=== PATIENT | female | born 1945 | race Caucasian/White ===

== ENCOUNTER → 2018-03-31 | Outpatient (CLI) | payer MEDICARE ==
[~2018-03-31] MED LIST: ASP81TEC PO; MECL-124 PO; NAPR-243 PO; OMEP40CA36 PO; ONDAN4ODT PO; SCOP1PAT TD
--- NOTE | 2018-03-31 08:21 | Diagnostic Imaging Report ---
PROCEDURE: CT head without contrast. TECHNIQUE: Multiple contiguous axial images were obtained through the brain without the use of intravenous contrast. INDICATION: Memory loss and dizziness COMPARISON: 09/14/2012 FINDINGS: No acute intracranial hemorrhage, mass effect or edema is seen. Balderarma-white junction is preserved. There is mild diffuse atrophy. The ventricles appear normal. Few scattered areas of hypodensity in the periventricular white matter likely related to chronic small vessel ischemic change. The paranasal sinuses and mastoids are clear as visualized. IMPRESSION: No evidence of an acute intracranial abnormality. Dictated by: Dictated on workstation # [id number]
== END ==
LOC: RAD 07:48
PROVIDERS: ATTEND Family Medicine
DX: R41.3 Other amnesia (principal); R42 Dizziness and giddiness; W19.XXXS Unspecified fall, sequela
CPT/HCPCS: 70450

== ENCOUNTER 2019-09-25 17:48 | Emergency (ER) | payer MEDICARE ==
[~2019-09-25] VITALS: Ht 157.5 cm; Wt 55.8 kg
[2019-09-25] MEDS ORDERED: LOSA25TA41 PO (18:18)
[2019-09-25] MEDS ORDERED: MEMA10TA57 PO (18:18)
[2019-09-25] MEDS ORDERED: VITA1CAP19 PO (18:18)
[2019-09-25] MEDS ORDERED: OMG1KC PO (18:18)
[2019-09-25] MEDS ORDERED: PRAV10TA PO (18:18)
[2019-09-25] MEDS ORDERED: LORA1TAB PO ×2 (18:18)
[2019-09-25 18:28] VITALS: BP_SYST 137; BP_SYST 165; BP_SYST 177; BP_DIAS 77; BP_DIAS 79; BP_DIAS 91
[2019-09-25 18:52] LABS: BASOPHILS % (AUTO) 1 % (0-10); EOSINOPHILS % (AUTO) 1 % (0-10); HEMATOCRIT 41 % (35-52); HEMOGLOBIN 14.2 G/DL (11.5-16.0); LYMPHOCYTES # (AUTO) 2.9 X 10^3 (1.0-4.0); LYMPHOCYTES % (AUTO) 42 % (12-44); MEAN CORPUSCULAR HEMOGLOBIN 32 PG (25-34); MEAN CORPUSCULAR HGB CONC 35 G/DL (32-36); MEAN CORPUSCULAR VOLUME 92 FL (80-99); MEAN PLATELET VOLUME 9.8 FL (7.4-10.4); MONOCYTES # (AUTO) 0.5 X 10^3 (0.0-1.0); MONOCYTES % (AUTO) 7 % (0-12); NEUTROPHILS # (AUTO) 3.4 X 10^3 (1.8-7.8); NEUTROPHILS % (AUTO) 49 % (42-75); PLATELET COUNT 246 10^3/uL (130-400); WHITE BLOOD COUNT 6.9 10^3/uL (4.3-11.0)
[2019-09-25] MEDS ORDERED: LACTATED RINGERS 1,000 ML IV ONE (19:06)
[2019-09-25 19:14] LABS: ALANINE AMINOTRANSFERASE 19 U/L (0-55); ALBUMIN 4.6 GM/DL (3.2-4.5); ALKALINE PHOSPHATASE 78 U/L (40-136); BILIRUBIN,TOTAL 0.5 MG/DL (0.1-1.0); BUN/CREATININE RATIO 12; CALCIUM 10.2 MG/DL (8.5-10.1); CARBON DIOXIDE 20 MMOL/L (21-32); CHLORIDE 105 MMOL/L (98-107); CREATININE SERUM 1.05 MG/DL (0.60-1.30); GFR ESTIMATED 51; GLUCOSE 105 MG/DL (70-105); POTASSIUM 3.5 MMOL/L (3.6-5.0); SODIUM 141 MMOL/L (135-145); TOTAL PROTEIN 7.7 GM/DL (6.4-8.2)
--- NOTE | 2019-09-25 19:15 | Diagnostic Imaging Report ---
INDICATION: Increased confusion COMPARISON: 07/15/2013 FINDINGS: Single frontal view of the chest demonstrates normal heart size and pulmonary vascularity. The lungs are hyperinflated, but are otherwise clear. No large pleural effusion or pneumothorax is seen. The visualized osseous structures show no acute abnormalities. IMPRESSION: 1. No acute cardiopulmonary process. 2. Hyperinflation of the lungs. Correlation with underlying obstructive pulmonary disease is recommended. Dictated by: Dictated on workstation # [id number]
--- NOTE | 2019-09-25 19:16 | Diagnostic Imaging Report ---
INDICATION: History of dementia. Increased confusion. TECHNIQUE: Routine non contrast-enhanced axial images were obtained from the skull base to the vertex. Auto Exposure Controls were utilized during the CT exam to meet ALARA standards for radiation dose reduction COMPARISON: 03/31/2018 FINDINGS: The ventricles and cortical sulci are diffusely prominent, compatible with age-related volume loss. There are confluent areas of abnormal, low attenuation in the periventricular white matter. This is consistent with chronic small vessel ischemic changes. There is no midline shift or mass-effect. No acute intra-axial hemorrhage is seen. There are no abnormal areas of increased or decreased density to suggest acute hemorrhage or edema. No extra-axial masses or collections are present. The bony calvarium is intact. The visualized paranasal sinuses are unremarkable. The mastoid air cells are clear. IMPRESSION: 1. No acute intracranial abnormality. No CT evidence of mass, acute infarct or intracranial hemorrhage. 2. Chronic small vessel ischemic changes in the deep white matter. Dictated by: Dictated on workstation # [id number]
--- NOTE | 2019-09-25 19:19 | ED General ---
General Chief Complaint: Neurological Problems Stated Complaint: SHAKING, BARELY ABLE TO WALK, HAS DEMENTIA Nursing Triage Note: Family reports pt has hx of dementia. For the past 1-1.5 years she has had episodes of increased confusion, agitation, shakiness and weakness. The family feels that they need some explanation for these episodes and want to know what they can do to improve things. Today's episode started this morning. Nursing Sepsis Screen: No Definite Risk Source of Information: Patient, Family Exam Limitations: No Limitations History of Present Illness Date Seen by Provider: Sep 25, 2019 Time Seen by Provider: 18:30 Initial Comments Patient presents to ER by private conveyance from home with sister, daughter and son. She says she does not want be here. She has a chronic issue with vertigo dizziness and has been put on meclizine as well as Xanax by Dr. Yin. It worked for a while but for the past couple days they say she's been having difficulty feeling weak and tired hard to walk And gets very dizzy whenever she sits up or rolls over. She says it will pass and she'll have several good days. They say she will spend most of the day in bed when she has the vertigo. She has no history of coronary disease stroke, weakness numbness confusion, slurred speech. She is able to walk into the ER. She is having no dysuria. She only has mild bouts of dizziness when she sits up in bed. She denies nausea fever chills cough shortness of breath or chest pain. Allergies and Home Medications Allergies Coded Allergies: Penicillins (Verified Allergy, RASH, 09/14/12) Home Medications Aspirin 81 Mg Tabec, 81 MG PO DAILY, (Reported) Lorazepam 1 Mg Tablet, 0.5 MG PO DAILY, (Reported) Lorazepam 1 Mg Tablet, 1 MG PO HS, (Reported) Losartan Potassium 25 Mg Tablet, 25 MG PO DAILY, (Reported) Meclizine Hcl 25 Mg Tab, 1-2 TAB PO Q 4-6 HOURS PRN FOR DIZZINESS Prescribed by: REBECCA SIMMS on 09/14/122057 Memantine HCl 10 Mg Tablet, 10 MG PO BID, (Reported) Naproxen 500 Mg Tablet, 1 EACH PO BID, (Reported) [place] 3 Polyunsat Fatty Acids 1,000 Mg Cap, 1,000 MG PO DAILY, (Reported) Omeprazole 40 Mg Capsule.dr, 40 MG PO DAILY, (Reported) Ondansetron Hcl 4 Mg Tab, 4 MG PO Q4H FOR NAUSEA AND VOMITING Prescribed by: REBECCA SIMMS on 09/14/122057 Pravastatin Sodium 10 Mg Tablet, 10 MG PO DAILY, (Reported) Scopolamine Hcl 1 Patch .72 H Patch.td72, 1 EA TD Q3D FOR DIZZINESS Prescribed by: REBECCA SIMMS on 09/14/122057 Vitamin B Complex 1 Each Capsule, 1 EACH PO DAILY, (Reported) Patient Home Medication List Home Medication List Reviewed: Yes Review of Systems Review of Systems Constitutional: No chills, No diaphoresis; dizziness EENTM: No ear discharge, No ear pain Respiratory: No cough, No short of breath Cardiovascular: No chest pain, No palpitations Gastrointestinal: No abdominal pain, No constipation, No diarrhea, No nausea Genitourinary: No discharge, No dysuria Musculoskeletal: No back pain, No joint pain Skin: No pruritus, No rash Psychiatric/Neurological: Denies Headache, Denies Numbness, Denies Paresthesia All Other Systems Reviewed Negative Unless Noted: Yes Past Pvvezgw-Mkianr-Xcvgxa Hx Patient Social History Alcohol Use: Rarely Uses Recreational Drug Use: No Smoking Status: Never a Smoker Recent Foreign Travel: No Contact w/Someone Who Travel: No Recent Infectious Disease Expo: No Recent Hopitalizations: No Physical Abuse: No Sexual Abuse: No Mistreated: No Fear: No Past Medical History Surgeries: Yes Appendectomy, Hysterectomy Cardiac: Yes Hypertension Neurological: Yes Dementia Musculoskeletal: Yes Arthritis, Chronic Back Pain Physical Exam Vital Signs Vital Signs - First Documented 09/25/19 17:57 Temp 35.9 Pulse 82 Resp 24 B/P (MAP) 173/84 (113) Pulse Ox 100 O2 Delivery Room Air Capillary Refill : Less Than 3 Seconds Height, Weight, BMI Height: '" Weight: lbs. oz. kg; 22.00 BMI Method:Estimated General Appearance: No Apparent Distress, WD/WN, Anxious Eyes: Bilateral Eye Normal Inspection, Bilateral Eye PERRL, Bilateral Eye EOMI HEENT: PERRL/EOMI, TMs Normal, Normal ENT Inspection, Pharynx Normal, Moist Mucous Membranes Neck: Full Range of Motion, Normal Inspection, Non Tender, Supple Respiratory: Lungs Clear, Normal Breath Sounds, No Accessory Muscle Use, No Respiratory Distress Cardiovascular: Regular Rate, Rhythm, No Edema, Normal Peripheral Pulses Gastrointestinal: Normal Bowel Sounds, No Organomegaly, Non Tender, Soft Extremity: Normal Capillary Refill, Normal Inspection, Normal Range of Motion, Non Tender Neurologic/Psychiatric: Alert, Oriented x3, No Motor/Sensory Deficits, Other (fine motor tremor) Skin: Normal Color, Warm/Dry Progress/Results/Core Measures Suspected Sepsis Recent Fever Within 48 Hours: No Infection Criteria Present: None New/Unexplained Altered Menta: No Sepsis Screen: No Definite Risk SIRS Temperature: Pulse: 88 Respiratory Rate: 24 Laboratory Tests 09/25/19 18:45: White Blood Count 6.9 Blood Pressure 137 /91 Mean: 106 Laboratory Tests 09/25/19 18:45: Creatinine 1.05, Platelet Count 246, Total Bilirubin 0.5 Results/Orders Lab Results Laboratory Tests Test 09/25/19 18:45 09/25/19 19:30 Range/Units White Blood Count 6.9 4.3-11.0 10^3/uL Red Blood Count 4.42 4.35-5.85 10^6/uL Hemoglobin 14.2 11.5-16.0 G/DL Hematocrit 41 35-52 % Mean Corpuscular Volume 92 80-99 FL Mean Corpuscular Hemoglobin 32 25-34 PG Mean Corpuscular Hemoglobin Concent 35 32-36 G/DL Red Cell Distribution Width 12.0 10.0-14.5 % Platelet Count 246 130-400 10^3/uL Mean Platelet Volume 9.8 7.4-10.4 FL Neutrophils (%) (Auto) 49 42-75 % Lymphocytes (%) (Auto) 42 12-44 % Monocytes (%) (Auto) 7 0-12 % Eosinophils (%) (Auto) 1 0-10 % Basophils (%) (Auto) 1 0-10 % Neutrophils # (Auto) 3.4 1.8-7.8 X 10^3 Lymphocytes # (Auto) 2.9 1.0-4.0 X 10^3 Monocytes # (Auto) 0.5 0.0-1.0 X 10^3 Eosinophils # (Auto) 0.0 0.0-0.3 10^3/uL Basophils # (Auto) 0.0 0.0-0.1 10^3/uL Sodium Level 141 135-145 MMOL/L Potassium Level 3.5 L 3.6-5.0 MMOL/L Chloride Level 105 98-107 MMOL/L Carbon Dioxide Level 20 L 21-32 MMOL/L Anion Gap 16 H 5-14 MMOL/L Blood Urea Nitrogen 13 7-18 MG/DL Creatinine 1.05 0.60-1.30 MG/DL Estimat Glomerular Filtration Rate 51 BUN/Creatinine Ratio 12 Glucose Level 105 70-105 MG/DL Calcium Level 10.2 H 8.5-10.1 MG/DL Corrected Calcium 8.5-10.1 MG/DL Total Bilirubin 0.5 0.1-1.0 MG/DL Aspartate Amino Transf (AST/SGOT) 21 5-34 U/L Alanine Aminotransferase (ALT/SGPT) 19 0-55 U/L Alkaline Phosphatase 78 40-136 U/L Total Creatine Kinase 70 29-168 U/L Troponin I < 0.028 <0.028 NG/ML C-Reactive Protein High Sensitivity 0.05 0.00-0.50 MG/DL Total Protein 7.7 6.4-8.2 GM/DL Albumin 4.6 H 3.2-4.5 GM/DL Urine Color YELLOW Urine Clarity CLEAR Urine pH 7.5 5-9 Urine Specific Worth 1.015 L 1.016-1.022 Urine Protein NEGATIVE NEGATIVE Urine Glucose (UA) NEGATIVE NEGATIVE Urine Ketones NEGATIVE NEGATIVE Urine Nitrite NEGATIVE NEGATIVE Urine Bilirubin NEGATIVE NEGATIVE Urine Urobilinogen 0.2 < = 1.0 MG/DL Urine Leukocyte Esterase 1+ H NEGATIVE Urine RBC (Auto) NEGATIVE NEGATIVE Urine RBC NONE /HPF Urine WBC 2-5 /HPF Urine Squamous Epithelial Cells 2-5 /HPF Urine Crystals NONE /LPF Urine Bacteria NEGATIVE /HPF Urine Casts NONE /LPF Urine Mucus NEGATIVE /LPF Urine Culture Indicated NO My Orders Orders - BROOKLYNN MANLEY Ua Culture If Indicated (09/25/19 18:25) Cbc With Automated Diff (09/25/19 18:25) Comprehensive Metabolic Panel (09/25/19 18:25) Hs C Reactive Protein (09/25/19 18:25) Orthostatic Vital Signs (Adult (09/25/19 18:25) Ekg Tracing (09/25/19 18:25) Troponin I (09/25/19 18:25) Ct Head Wo (09/25/19 18:25) Chest 1 View, Ap/Pa Only (09/25/19 18:25) Creatine Kinase (09/25/19 19:06) Ed Iv/Invasive Line Start (09/25/19 19:06) Lactated Ringers (Lr 1000 Ml Iv Solution (09/25/19 19:06) Medications Given in ED Current Medications Medications Dose Ordered Sig/Vinicio Route Start Time Stop Time Status Last Admin Dose Admin Lactated Ringer's 1,000 ml @ 0 mls/hr Q0M ONCE IV 09/25/19 19:06 09/25/19 19:08 DC 09/25/19 19:20 1,000 MLS/HR Vital Signs/I&O 09/25/19 09/25/19 09/25/19 17:57 18:28 20:30 Temp 35.9 Pulse 82 75 89 80 87 88 85 Resp 24 B/P (MAP) 173/84 (113) 177/77 (110) 164/70 (101) 165/79 (107) 163/85 (111) 137/91 (106) 151/73 (99) Pulse Ox 100 O2 Delivery Room Air Capillary Refill : Less Than 3 Seconds Blood Pressure Mean: 106 Progress Note : Time: 19:29 Progress Note Patient has a fine essential tremor. She has vertigo. She's tried meclizine and benzodiazepines. She will need further outpatient management of this. We will try and teacher some Caridad's maneuvers. We'll rule out anemia, infection, electrolyte derangements or significant dehydration. Set of orthostatic vital signs will also be helpful. Orthostatics are positive. We will give her a liter of LR. ECG Initial ECG Impression Date: Sep 25, 2019 Initial ECG Impression Time: 18:45 Initial ECG Rate: 66 Initial ECG Rhythm: Normal Sinus Initial ECG Intervals: Normal Initial ECG Impression: Normal Comment Normal sinus rhythm without ST elevation or depression Diagnostic Imaging Diagonstic Imaging: Xray Plain Films/CT/US/NM/MRI: chest (1v) Comments [facility] [place] [place] NAME: CHATA CHIANG [facility] REC#: [id number] PT STATUS: REG ER : 1945 PHYSICIAN: BROOKLYNN MANLEY MD ADMIT DATE: 09/25/19/ER Draft Date of Exam:09/25/19 CHEST 1 VIEW, AP/PA ONLY INDICATION: Increased confusion COMPARISON: 07/15/2013 FINDINGS: Single frontal view of the chest demonstrates normal heart size and pulmonary vascularity. The lungs are hyperinflated, but are otherwise clear. No large pleural effusion or pneumothorax is seen. The visualized osseous structures show no acute abnormalities. IMPRESSION: 1. No acute cardiopulmonary process. 2. Hyperinflation of the lungs. Correlation with underlying obstructive pulmonary disease is recommended. Dictated on workstation # [id number] Dict: 09/25/191912 Trans: 09/25/191914 PAULO [id number] Interpreted by: ABI RICHARDSON MD Electronically signed by: Reviewed: Reviewed by Me Diagonstic Imaging: CT (w/o contrast) Plain Films/CT/US/NM/MRI: head Comments NAME: CHATA CHIANG [facility] REC#: [id number] PT STATUS: REG ER : 1945 PHYSICIAN: BROOKLYNN MANLEY MD ADMIT DATE: 09/25/19/ER Draft Date of Exam:09/25/19 CT HEAD WO INDICATION: History of dementia. Increased confusion. TECHNIQUE: Routine non contrast-enhanced axial images were obtained from the skull base to the vertex. Auto Exposure Controls were utilized during the CT exam to meet ALARA standards for radiation dose reduction COMPARISON: 03/31/2018 FINDINGS: The ventricles and cortical sulci are diffusely prominent, compatible with age-related volume loss. There are confluent areas of abnormal, low attenuation in the periventricular white matter. This is consistent with chronic small vessel ischemic changes. There is no midline shift or mass-effect. No acute intra-axial hemorrhage is seen. There are no abnormal areas of increased or decreased density to suggest acute hemorrhage or edema. No extra-axial masses or collections are present. The bony calvarium is intact. The visualized paranasal sinuses are unremarkable. The mastoid air cells are clear. IMPRESSION: 1. No acute intracranial abnormality. No CT evidence of mass, acute infarct or intracranial hemorrhage. 2. Chronic small vessel ischemic changes in the deep white matter. Dictated on workstation # [id number] Dict: 09/25/191912 Trans: 09/25/191914 PAULO [id number] Interpreted by: ABI RICHARDSON MD Electronically signed by: Reviewed: Reviewed by Me Departure Impression Primary Impression: Orthostasis Additional Impressions: BPPV (benign paroxysmal positional vertigo) Qualified Codes: H81.10 - Benign paroxysmal vertigo, unspecified ear Physical deconditioning Disposition: 01 HOME, SELF-CARE Condition: Stable Departure-Patient Inst. Decision time for Depature: 20:37 Referrals: RYAN YIN MD (PCP/Family) Primary Care Physician Patient Instructions: Orthostatic Hypotension (DC), Vestibular Exercises Add. Discharge Instructions: Drink plenty of fluids. Follow-up with your primary care provider to discuss management of BPPV and deconditioning. Physical therapy may be beneficial. Perform the Caridad maneuvers as described if you have a bout of vertigo. All discharge instructions reviewed with patient and/or family. Voiced understanding. BROOKLYNN MANLEY Sep 25, 2019 19:19
[2019-09-25 19:40] LABS: BILIRUBIN,URINE NEGATIVE (NEGATIVE); CLARITY,URINE CLEAR; COLOR,URINE YELLOW; GLUCOSE, URINE (UA) NEGATIVE (NEGATIVE); KETONES,URINE NEGATIVE (NEGATIVE); LEUKOCYTE ESTERASE ,URINE 1+ (NEGATIVE); NITRITE,URINE NEGATIVE (NEGATIVE); PH,URINE 7.5 (5-9); PROTEIN,URINE NEGATIVE (NEGATIVE)
[2019-09-25 19:49] LABS: BACTERIA,URINE NEGATIVE /HPF
[2019-09-25 20:30] VITALS: BP_SYST 151; BP_SYST 163; BP_SYST 164; BP_DIAS 70; BP_DIAS 73; BP_DIAS 85
[2019-09-25 20:57] VITALS: BP 155/63
== END 2019-09-25 21:00 | disposition home or self-care (01) ==
LOC: EDUNIT# 17:48 → ER 17:50
DX: H81.10 Benign paroxysmal vertigo, unspecified ear (principal); I95.1 Orthostatic hypotension; F03.90 Unspecified dementia, unspecified severity, without behavioral disturbance, psychotic disturbance, mood disturbance, and anxiety; I10 Essential (primary) hypertension; Z88.0 Allergy status to penicillin; Z79.82 Long term (current) use of aspirin; Z90.49 Acquired absence of other specified parts of digestive tract; Z90.710 Acquired absence of both cervix and uterus
CPT/HCPCS: 36415; 70450; 71045; 80053; 81000; 82550; 84484; 85025; 86141; 93005; 96360